=== PATIENT | male | born 1970 ===

== ENCOUNTER 2023-02-12 08:15 | Inpatient (IN) | payer OTHER ==
[~2023-02-12] VITALS: Ht 177.8 cm; Wt 71.7 kg
[2023-02-12] MEDS ORDERED: TOPROL XL25 M1 PO (09:13)
[2023-02-12] MEDS ORDERED: METHIMAZOLE10 MG PO (09:13)
[2023-02-12 09:31] LABS: URINE APPEARANCE Clear; URINE BILIRRUBIN Negative (NEGATIVE); URINE BLOOD Negative; URINE COLOR Yellow; URINE GLUCOSE Negative (NEGATIVE); URINE LEUKOCYTE Negative; URINE NITRATE Negative; URINE PROTEIN Negative (NEGATIVE); URINE UROBILINOGEN 0.2 E.U./dl
[2023-02-12 09:38] LABS: URINE BACTERIA 6.2 uL (0.0-1933)
[2023-02-12 09:39] LABS: HEMOGLOBIN 16.2 g/dL (13-16.00); MEAN CELL VOLUME 90.1 fL (80.0-100.00); MEAN CORPUSCULAR HGB CONC 34.4 g/dl (32.0-36.0); PLATELET COUNT 247 K/uL (150-450); RED BLOOD COUNT 5.21 M/uL (4.00-6.00)
[2023-02-12 09:43] LABS: URINE EPITHELIAL CELLS 0.6 uL (0.0-38.8)
[2023-02-12 10:26] LABS: INR 1.01; PARTIAL THROMBOPLASTIN TIME 29.2 SECONDS (22.0-34.0); PROTHROMBIN TIME 10.6 SECONDS (9.0-11.5)
[2023-02-12 10:32] LABS: ALBUMIN 4.1 gm/dL (3.4-5.0); BILIRUBIN TOTAL 0.48 mg/dL (0.3-1.2); CALCIUM 9.6 mg/dL (8.5-10.1); CREATININE SERUM 0.88 mg/dL (0.70-1.30); GFR 91.66; GLOBULINA 3.3 G/DL (2.4-3.5); POTASSIUM 4.14 mEq/L (3.5-5.1); TOTAL PROTEIN 7.4 gm/dL (6.4-8.2)
== END 2023-02-17 14:05 | disposition home or self-care (01) | DRG 627 ==
LOC: SURH 02-16 07:00 → O/R 02-16 07:54 → SURG 02-16 07:54 → SURH 02-16 08:15 → SURG 02-16 09:49
PROVIDERS: ADMIT Otolaryngology; ATTEND Otolaryngology
PROC: 0GTG0ZZ Resection of Left Thyroid Gland Lobe, Open Approach (ICD-10-PCS; principal; 2023-02-16 07:00)
DX: E05.00 Thyrotoxicosis with diffuse goiter without thyrotoxic crisis or storm (principal); Z20.822 Contact with and (suspected) exposure to COVID-19

== ENCOUNTER 2023-06-01 05:10 | Day surgery (SDC) | payer OTHER ==
[2023-05-22 09:47] LABS: PH,URINE 7.5 (5.0-8.0); URINE APPEARANCE Clear; URINE BILIRRUBIN Negative (NEGATIVE); URINE BLOOD Negative; URINE COLOR Yellow; URINE GLUCOSE Negative (NEGATIVE); URINE LEUKOCYTE Negative; URINE NITRATE Negative; URINE PROTEIN Negative (NEGATIVE)
[2023-05-22 09:54] LABS: HEMATOCRIT 46.7 % (39.0-48.0); HEMOGLOBIN 15.7 g/dL (13-16.00); MEAN CELL VOLUME 91.7 fL (80.0-100.00); MEAN CORPUSCULAR HEMOGLOBIN 30.9 pg (27.00-32.0); MEAN CORPUSCULAR HGB CONC 33.7 g/dl (32.0-36.0); PLATELET COUNT 215 K/uL (150-450); RED BLOOD COUNT 5.09 M/uL (4.00-6.00); RED CELL DISTRIBUTION WIDTH 14.3 % (11.5-14.5)
[2023-05-22 10:15] LABS: PARTIAL THROMBOPLASTIN TIME 30.5 SECONDS (22.0-34.0); PROTHROMBIN TIME 10.5 SECONDS (9.0-11.5)
[2023-05-22 10:17] LABS: URINE EPITHELIAL CELLS 0.3 uL (0.0-38.8); URINE RBC 1.5 uL (0.0-20.8); URINE WBC 1.5 uL (0.0-23.2)
[2023-05-22 10:18] LABS: URINE BACTERIA 2.5 uL (0.0-1933)
[2023-05-22 10:34] LABS: ALBUMIN 3.9 gm/dL (3.4-5.0); BILIRUBIN TOTAL 0.51 mg/dL (0.3-1.2); CALCIUM 9.6 mg/dL (8.5-10.1); CREATININE SERUM 0.88 mg/dL (0.70-1.30); GFR 91.66; GLOBULINA 3.3 G/DL (2.4-3.5); POTASSIUM 4.84 mEq/L (3.5-5.1); TOTAL PROTEIN 7.2 gm/dL (6.4-8.2)
[~2023-06-01 05:10] MED LIST: METHIMAZOLE10 MG PO; TOPROL XL25 M1 PO
[2023-06-01] MEDS ORDERED: DEXAMETHASONE SODIUM PHOSPHATE 4 MG/ML VIAL ONE (07:05)
[2023-06-01] MEDS ORDERED: DEXAMETHASONE 4 MG TABLET PO ONE (08:45)
== END 2023-06-01 13:05 | disposition home or self-care (01) ==
LOC: CIR.AMB 05:10
PROVIDERS: ATTEND Otolaryngology
DX: E05.00 Thyrotoxicosis with diffuse goiter without thyrotoxic crisis or storm (principal); D44.0 Neoplasm of uncertain behavior of thyroid gland; E06.3 Autoimmune thyroiditis; Z88.6 Allergy status to analgesic agent